=== PATIENT | female | born 1975 | race Hispanic/Latino ===

== ENCOUNTER 2018-12-14 20:16 | Emergency (ER) | payer MEDICAID, SELFPAY ==
[~2018-12-14 20:16] MED LIST: ISOVUE-370 76%-LOCM 1 ML ONE
--- NOTE | 2018-12-14 21:07 | RAD ---
XR Chest 1 View Portable History: Dizziness and vomiting Comparison: Radiograph July 24, 2012 Findings: Lungs are hypoinflated with vascular crowding and spurious enlargement of the cardiac silho uette. No pneumothorax. No effusion. No acute osseous abnormality. Impression: Lung hypoinflation with scattered atelectasis and vascular crowding. No evidence for pneu monia.
[2018-12-14] MEDS ORDERED: Dexamethasone 4 mg/ml Vial ONE (21:11)
[2018-12-14] MEDS ORDERED: Meclizine HCl 25 MG TAB ONE (21:11)
[2018-12-14] MEDS ORDERED: Ondansetron PF 4 MG/2 ML Vial ONE (21:11)
[2018-12-14] MEDS ORDERED: Dexamethasone 10 MG/ML VIAL ONE (21:12)
[2018-12-14 21:15] LABS: #Eosinphils 0.1 thou/uL (0.0-0.7); #Lymphocytes 3.1 thou/uL (1.20-3.40); #Monocytes 0.5 thou/uL (0.11-0.59); #Neutrophils 5.8 thou/uL (1.40-6.50); %Basophils 0.3 % (0.0-1.0); %Eosinophils 1.5 % (0.0-10.0); %Lymphocytes 32.6 % (21.0-51.0); %Monocytes 5.6 % (0.0-10.0); Hemoglobin 14.3 g/dL (12.0-16.0); Mean Corpuscular HGB CONC 33.8 g/dL (32.0-36.0); Mean Corpuscular Hemoglobin 30.1 pg (27.0-31.0); Mean Corpuscular Volume 89.1 fL (78.0-98.0); Mean Platelet Volume 7.5 fL (7.4-10.4); Platelet Count 225 thou/uL (130-400); RBC Distribution Width 11.5 % (11.5-14.5); Red Blood Cell (RBC) Count 4.74 mill/uL (4.20-5.40); White Blood Cell (WBC) Count 9.6 thou/uL (4.8-10.8)
--- NOTE | 2018-12-14 21:24 | CT ---
CT Brain WO Con History: Altered mental status Comparison: None. Findings: No acute hemorrhage or infarct. No midline shift or mass effect. Ventricular size and extra -axial CSF spaces are normal. Calvarium is intact. Paranasal sinuses and mastoids are clear. Impression: No acute intracranial abnormality.
[2018-12-14 21:38] LABS: ALT (SGPT) 22 U/L (8-55); AST (SGOT) 14 U/L (5-34); Albumin 4.2 g/dL (3.5-5.0); Alkaline Phosphatase 73 U/L (40-110); Anion Gap 11 mmol/L (10-20); BUN (Urea Nitrogen) 14 mg/dL (7.0-18.7); Bilirubin, Total 0.3 mg/dL (0.2-1.2); CK (CPK) 85 U/L (29-168); Calc. Creatinine Clearance 0 mL/min (70-130); Calcium 9.1 mg/dL (7.8-10.44); Carbon Dioxide 20 mmol/L (22-29); Chloride 108 mmol/L (98-107); Estimated GFR-MDRD 81; Globulin 2.8 g/dL (2.4-3.5); Glucose 152 mg/dL (70-105); Lipase 38 U/L (8-78); Potassium 3.5 mmol/L (3.5-5.1); Sodium 135 mmol/L (136-145)
[2018-12-14 22:22] LABS: Bilirubin Negative (Negative); Blood, Urine Negative (Negative); Clarity Clear (Clear); Glucose, Urine (Dipstick) Normal (Negative); Leukocyte Negative Leu/uL (Negative); Nitrite Negative (Negative); Protein, Urine (Dipstick) Negative (Neg-Trace); Urobilinogen Normal mg/dL (Less than 2)
--- NOTE | 2018-12-14 22:27 | CT ---
CTA Angio Chest W WO Con History: Syncope Comparison: Chest radiograph same day Findings: CT angiogram chest performed after the intravenous ministration of contrast. 3-D rendering provided. No proximal segmental pulmonary arterial filling defect. Distal evaluation is limited due to the hosea yed phase of contrast. No pericardial effusion. Evaluation of the upper abdomen appears unremarkable. No pneumonia. No pneumothorax. No effusion. Low-grade atelectasis. No thoracic spine compression fracture. Sternum and manubrium are intact. No acute displaced rib fracture. Impression: No pulmonary embolism or other acute intrathoracic abnormality.
--- NOTE | 2018-12-17 23:15 | EKG ---
Test Reason : Blood Pressure : / mmHG Vent. Rate : 090 BPM Atrial Rate : 090 BPM P-R Int : 140 ms QRS Dur : 086 ms QT Int : 356 ms P-R-T Axes : 019 061 022 degrees QTc Int : 435 ms Normal sinus rhythm Normal ECG Confirmed by MONSTER SHAH, DELIA ([id number]), city editor IRENE MCNEILL ([id number]) on 12/17/2018 11:15:34 PM Referred By: Confirmed By:DELIA HOOK MD
== END 2018-12-14 23:13 | disposition home or self-care (01) ==
LOC: ERS 20:16
DX: R55 Syncope and collapse (principal); R42 Dizziness and giddiness; E11.9 Type 2 diabetes mellitus without complications; Z79.82 Long term (current) use of aspirin
CPT/HCPCS: 36415; 70450; 71045; 71275; 80053; 81003; 82550; 83690; 83880; 84146; 84443; 84484; 85025; 85379; 93005; 96361; 96374; 96375; J1100; J2405; J8597; Q9966